=== PATIENT | female | born 1940 | race Caucasian/White ===

== ENCOUNTER → 2018-03-17 | Outpatient (CLI) | payer OTHER ==
[~2018-03-17] MED LIST: GADOBUTROL 7.5 MMOL/7.5 ML PFS ONE; OLME1TAB22 PO
== END | disposition home or self-care (01) ==
LOC: CFH 07:20
PROVIDERS: ATTEND Nurse Practitioner Family
DX: I67.82 Cerebral ischemia (principal); G31.9 Degenerative disease of nervous system, unspecified
CPT/HCPCS: 70544; 70553; 82565; A9585

== ENCOUNTER 2019-06-03 12:34 | Emergency (ER) | payer OTHER ==
[~2019-06-03] VITALS: Ht 167.6 cm; Wt 66.6 kg
[~2019-06-03 12:34] MED LIST changes: -GADOBUTROL 7.5 MMOL/7.5 ML PFS ONE
--- NOTE | 2019-06-03 14:15 | NUR ---
Pt to room from lobby.
--- NOTE | 2019-06-03 14:20 | NUR ---
PT BROUGHT BACK FROM TRIAGE HAS HAD A COLD FOR 1 WEEK. SAW PCP TODAY. WENT TO [facility] AND HAD AN XRAY DONE TO R/O PNA. NONE WAS SEEN. WAS TOLD TO COME TO ER FOR FURTHER F/U. DESCRIBES FEELING "OUT OF IT" AND FORGETFUL. ALSO EXPERIENCED DIFFICULTY WALKING A FEW DAYS AGO WITH SOME NUMBNESS, SINCE HAS RESOLVED. PATIENT DENIES RECENT TRAUMA, CP, SOB. NO NEURO CHANGES REPORTED.
[2019-06-03 14:47] LABS: MEAN CORPUSCULAR HEMOGLOBIN 31.7 pg (27.0-34.8); MEAN CORPUSCULAR HGB CONC 34.3 g/dL (32.4-35.8); MEAN CORPUSCULAR VOLUME 92.5 fL (80-100); MEAN PLATELET VOLUME 7.9 fL (7.4-10.4); PLATELET COUNT 144 x10^3/uL (130-400); RED BLOOD COUNT 4.48 x10^6/uL (3.82-5.3); RED CELL DISTRIBUTION WIDTH 13.4 % (9.6-15.2)
--- NOTE | 2019-06-03 14:55 | NUR ---
JOSE REDDY AT [facility] FOR EVALUATION
[2019-06-03 15:02] LABS: ALBUMIN 3.7 g/dL (3.4-5.0); ANION GAP 8 mmol/L (5-15); CALCIUM 8.9 mg/dL (8.5-10.1); CHLORIDE 97 mmol/L (98-107); CREATININE 0.64 mg/dL (0.55-1.02)
--- NOTE | 2019-06-03 15:35 | NUR ---
PT RESTING IN BED, CALL LIGHT IN REACH.
[2019-06-03 15:38] LABS: MICROSCOPIC INDICATED
[2019-06-03 15:39] LABS: CULTURE INDICATED? YES
[2019-06-03 15:44] LABS: MD YES
[2019-06-03 15:45] LABS: BANDS%(MANUAL) 13 % (0-7); BASOS#(MANUAL) 0.02 x10^3/uL (0-0.1); BASOS% (MANUAL) 1 % (0-1); LYMPH#(MANUAL) 0.81 x10^3/uL (1-3.4); LYMPHS% (MANUAL) 35 % (22-44); MONOS% (MANUAL) 13 % (2-9); SEG#(MANUAL) 0.87 x10^3/uL (1.8-6.8); SEGS% (MANUAL) 38 % (42-75)
[2019-06-03 15:46] LABS: <PLATELET ESTIMATE> ADEQUATE; <PLT MORPHOLOGY> NORMAL PLT MORPH; ANISOCYTOSIS 1+; OVALOCYTES 1+; POLYCHROMASIA 1+
--- NOTE | 2019-06-03 16:02 | NUR ---
RECEIVED REPORT FROM TANIA. PT UPRIGHT ON GURNEY AWAKE & COMFORTABLE, NAD, RESPONDS APPROP TO STAFF, COMFORT MEASURES PROVIDED INCL 2ND CUP OF BROTH GIVEN PER ERP OK (OK TO HOLD PIV/IVF AT THIS TIME), FAMILY AT BS, CALL LIGHT WITHIN REACH.
[2019-06-03 16:30] LABS: RAPID INFLUENZA A POSITIVE (Negative); RAPID INFLUENZA B Negative (Negative)
[2019-06-03 17:00] VITALS: BP 145/55
[2019-06-03] MEDS ORDERED: SODIUM CHLORIDE FLUSH 10ML SYR IVF ONE (17:00)
[2019-06-03] MEDS ORDERED: SODIUM CHLORIDE 0.9% 1,000ML IVBOLUS ONE (17:00)
--- NOTE | 2019-06-03 17:00 | NUR ---
PT REMAINS UPRIGHT ON GURNEY AWAKE & COMFORTABLE, AWAITING US RESULT, TOLERATED 2 CUPS OF BROTH, NAD, RESPONDS APPROP TO STAFF, COMFORT MEASURES PROVIDED, FAMILY AT BS, CALL LIGHT WITHIN REACH.
--- NOTE | 2019-06-03 17:47 | NUR ---
Patient given discharge instructions and Rx, they have confirmed that they understand the instructions. Patient ambulatory with steady gait.
== END 2019-06-03 17:49 | disposition home or self-care (01) ==
LOC: ED 16:32
DX: J10.1 Influenza due to other identified influenza virus with other respiratory manifestations (principal); E87.1 Hypo-osmolality and hyponatremia
CPT/HCPCS: 36415; 70450; 80048; 81001; 82040; 83930; 85025; 87086; 87400; 99284

== ENCOUNTER 2019-09-19 15:50 | Outpatient (CLI) | payer OTHER | END 2019-09-19 23:59 | disposition home or self-care (01) | LOC: CVU 15:50 | PROVIDERS: ATTEND Internal Medicine Cardiovascular Disease | DX: I08.8 Other rheumatic multiple valve diseases (principal); I10 Essential (primary) hypertension | CPT/HCPCS: 93306 ==

== ENCOUNTER 2020-03-02 11:45 | Emergency (ER) | payer OTHER ==
[~2020-03-02] VITALS: Ht 167.6 cm; Wt 64.0 kg
--- NOTE | 2020-03-02 12:17 | NUR ---
PT WITH C/O "HEART SKIPPING AROUND" SHORTLY AFTER SHE WOKE THIS AM. PT CONNOR SHANNAN HX. NO CP/SOB REPORTED. PT TO SHANNAN JUNIOR, BP, CONTIUOUS PULSE OX. ERMD IN TO EVAL PT, ORDERS RECIEVED
[2020-03-02 12:19] LABS: BASOPHILS % (AUTO) 2 % (0-1); EOSINOPHILS % (AUTO) 1 % (1-7); LYMPHOCYTES % (AUTO) 28 % (22-44); MEAN CORPUSCULAR HEMOGLOBIN 31.5 pg (27.0-34.8); MEAN CORPUSCULAR HGB CONC 33.5 g/dL (32.4-35.8); MEAN PLATELET VOLUME 7.9 fL (7.4-10.4); MONOCYTES % (AUTO) 9 % (2-9); NEUTROPHILS % (AUTO) 61 % (42-75); PLATELET COUNT 156 x10^3/uL (130-400); RED BLOOD COUNT 4.64 x10^6/uL (3.82-5.3)
[2020-03-02 12:22] LABS: MD NO
[2020-03-02 12:32] LABS: ALBUMIN 4.3 g/dL (3.4-5.0); ANION GAP 8 mmol/L (5-15); CALCIUM 9.2 mg/dL (8.5-10.1); CHLORIDE 104 mmol/L (98-107); CREATININE 0.71 mg/dL (0.55-1.02)
[2020-03-02 12:36] LABS: TROPONIN I < 0.015 ng/mL (0.000-0.045)
[2020-03-02 12:41] LABS: T4 (THYROXINE) 9.5 mcg/dL (4.8-13.9)
--- NOTE | 2020-03-02 12:59 | NUR ---
REPORT TO ARMIDA GALLO
[2020-03-02 13:12] VITALS: BP 140/64
--- NOTE | 2020-03-02 13:12 | NUR ---
REPORT RC'VD FROM TONY GALLO AND CARE OF PT ASSUMED. PT STATES SHE'S FEELING BETTER NOW. HR DOWN TO 70s. PT STATES SHE HAD DIARRHEA THIS MORNING, AND SHE'S HAD "ELECTROLYTE PROBLEMS" IN THE PAST. STATES MAYBE SHE WAS JUST DEHYDRATED. AT , CHART UP FOR RECHECK.
--- NOTE | 2020-03-02 13:20 | NUR ---
WATER PROVIDED TO PT. FAIZA WAS IN FOR RECHECK.
--- NOTE | 2020-03-02 13:41 | NUR ---
D/C INSTRUCTIONS & F/U APPT RV'WD WITH PT, SHE VERBALIZES UNDERSTANDING. INSTRUCTED PT TO RETURN TO ED FOR ANY CONCERNING SYMPTOMS. AMBULATED OUT OF ED WITH WITHOUT DIFFICULTY.
== END 2020-03-02 13:42 | disposition home or self-care (01) ==
LOC: ED 13:08
DX: R00.2 Palpitations (principal); R42 Dizziness and giddiness; I44.4 Left anterior fascicular block; I10 Essential (primary) hypertension
CPT/HCPCS: 36415; 71045; 80048; 82040; 83735; 83880; 84436; 84443; 84484; 85025; 93005; 99285